=== PATIENT | male | born 1990 ===

== ENCOUNTER 2017-02-12 01:50 | Emergency (ER) | payer MEDICAID ==
[2017-02-12 02:05] VITALS: BP 137/47; PULSE 72; RESP 16; TEMP 97.9; O2SAT 96
[2017-02-12] MEDS ORDERED: Promethazine/Cod 6.25mg-10mg/5ml Syr UD PO STA (02:22)
[2017-02-12] MEDS ORDERED: Albuterol 0.083% Inhal Sol (2.5 mg/3 mL) UD IH STA (02:22)
[2017-02-12] MEDS ORDERED: Promethazine/Cod 6.25mg-10mg/5ml Syr UD ONE (02:43)
[2017-02-12] MEDS ORDERED: Ipratropium 0.02% Inhal Soln (0.5 mg/2.5 ml) UD IH ONE (02:51)
--- NOTE | 2017-02-12 03:31 | C.PDOC ---
History Of Present Illness 26 year old male presents to the ER with a complaint of a persistent cough for the past 3 days, associated with congestion. Patient has not taken anything for the pain; denies chest pain, SOB, leg swelling or fever. Nonsmoker. Time Seen by Provider: 02/12/17 01:58 Chief Complaint (Nursing): Cough, Cold, Congestion History Per: Patient History/Exam Limitations: no limitations Onset/Duration Of Symptoms: Days Current Symptoms Are (Timing): Still Present Location Of Pain: None Sick Contacts (Context): None Associated Symptoms: Cough, Nasal Congestion. denies: Fever, Other (Chest pain , SOB) Ear Symptoms: Bilateral: None Recent travel outside of the [place]: No Past Medical History Reviewed: Historical Data, Nursing Documentation, Vital Signs Vital Signs: Last Vital Signs Temp 97.9 F 02/12/17 02:03 Pulse 72 02/12/17 02:03 Resp 16 02/12/17 02:03 BP 137/47 L 02/12/17 02:03 Pulse Ox 96 02/12/17 04:45 - Medical History PMH: No Chronic Diseases Surgical History: Appendectomy Family History: States: Unknown Family Hx - Social History Hx Alcohol Use: Yes Hx Substance Use: No - Immunization History Hx Tetanus Toxoid Vaccination: Yes Hx Influenza Vaccination: Yes Hx Pneumococcal Vaccination: No Review Of Systems Constitutional: Negative for: Fever ENT: Positive for: Nose Congestion Cardiovascular: Negative for: Chest Pain Respiratory: Positive for: Cough. Negative for: Shortness of Breath Physical Exam - Physical Exam Appears: Non-toxic, No Acute Distress Skin: Normal Color, Warm, Dry Head: Atraumatic, Normacephalic Eye(s): bilateral: Normal Inspection, EOMI Ear(s): Bilateral: Normal Nose: Normal, No Discharge Oral Mucosa: Moist Throat: Normal, No Erythema, No Exudate Neck: Normal, Normal ROM, Supple Chest: Symmetrical, No Tenderness Cardiovascular: Rhythm Regular Respiratory: Normal Breath Sounds, No Rales, No Rhonchi, No Wheezing, Other ( Dry cough) Gastrointestinal/Abdominal: Soft, No Tenderness Neurological/Psych: Oriented x3, Normal Speech, Normal Cognition ED Course And Treatment O2 Sat by Pulse Oximetry: 96 (Room air) Pulse Ox Interpretation: Normal - Radiology CXR: Interpreted by Me, Viewed By Me CXR Interpretation: Yes: No Acute Disease. No: Infiltrates Progress Note: CXR ordered.Phenergan/codeine and nebulizer treatment with duoneb administered. On reevaluation, patient reports his cough has improved, denies any chest pain, pulse ox is 96%. Will discharge home with Rx, instructions to follow up with PMD and instructions to return to the ER if symptoms worsen. Disposition - Disposition Disposition: HOME/ ROUTINE Disposition Time: 03:29 Condition: GOOD Additional Instructions: Follow up with your PMD in 1-2 days. Return to ER if symptoms persist or worsen. Prescriptions: Albuterol HFA [Ventolin HFA 90 mcg/actuation (8 g)] 2 puff IH [id number] #1 puff Guaifen/Dextromethorphan/PE [Mucinex Fast-Max Congest-Cough] 1 each PO Q6 #20 tablet Instructions: Upper Respiratory Infection (ED) Forms: [employer] [employer] [facility] ([place]) - Clinical Impression Clinical Impression: Upper respiratory infection - Scribe Statement The provider has reviewed the documentation as recorded by the [facility] All medical record entries made by the Scribe were at my direction and personally dictated by me. I have reviewed the chart and agree that the record accurately reflects my personal performance of the history, physical exam, medical decision making, and the department course for this patient. I have also personally directed, reviewed, and agree with the discharge instructions and disposition.
--- NOTE | 2017-02-12 07:47 | RAD ---
HISTORY: cough COMPARISON: No prior. TECHNIQUE: Chest PA and lateral FINDINGS: LUNGS: No active pulmonary disease. PLEURA: No significant pleural effusion identified. No pneumothorax apparent. CARDIOVASCULAR: Normal. OSSEOUS STRUCTURES: No significant abnormalities. VISUALIZED UPPER ABDOMEN: Normal. OTHER FINDINGS: None. IMPRESSION: No active disease.
== END 2017-02-12 05:34 | disposition home or self-care (01) ==
LOC: C.ER 01:50
DX: J06.9 Acute upper respiratory infection, unspecified (principal)